=== PATIENT | male | born 1945 | race Hispanic/Latino ===

== ENCOUNTER 2018-02-16 20:40 | Emergency (ER) | payer MEDICARE ==
[2018-02-16 20:56] VITALS: BP 161/98; PULSE 95; RESP 20; TEMP 98.7; O2SAT 98
--- NOTE | 2018-02-16 21:56 | ED PDOC ---
Arrival/HPI - General Chief Complaint: Alcohol Ingestion Time Seen by Provider: 02/16/18 20:42 Historian: EMS - History of Present Illness Narrative History of Present Illness (Text): 02/16/18 20:55 72 year old male, with no significant past medical history, was brought to the Emergency department via EMS s/p alcohol intoxication prior to arrival. Patient admits to drinking alcohol tonight but denies any somatic complaints. Patient denies any fever, chills, nausea, vomiting, diarrhea, abdominal pain, chest pain , shortness of breath, or any other complaints. Patient informs smoking cigarettes daily but denies any substance abuse. Time/Duration: Prior to Arrival Symptom Onset: Gradual Symptom Course: Improving Activities at Onset: Other (Drinking Alcohol) Past Medical History - Provider Review Nursing Documentation Reviewed: Yes - Cardiac Hx Cardiac Disorders: No (pt denies) - Psychiatric Hx Psychophysiologic Disorder: No (patient denies) Hx Substance Use: No (denies) - Anesthesia Hx Anesthesia: No (pt denies) Family/Social History - Physician Review Nursing Documentation Reviewed: Yes Family/Social History: No Known Family HX Smoking Status: Heavy Smoker > 10 Cigarettes Daily Hx Alcohol Use: Yes Frequency of alcohol use: Daily Hx Substance Use: No (denies) Allergies/Home Meds Allergies/Adverse Reactions: Allergies No Known Allergies Allergy (Verified 02/16/18 20:51) Home Medications: Home Meds Medication Instructions Recorded Confirmed No Known Home Med 02/16/18 02/16/18 Review of Systems - Physician Review All systems were reviewed & negative as marked: Yes - Review of Systems Constitutional: Other (Intoxicated). absent: Fevers Eyes: Normal ENT: Normal Respiratory: Normal. absent: SOB Cardiovascular: Normal. absent: Chest Pain Gastrointestinal: Normal. absent: Abdominal Pain, Diarrhea, Nausea, Vomiting Genitourinary Male: Normal Musculoskeletal: Normal Skin: Normal Neurological: Normal Endocrine: Normal Hemo/Lymphatic: Normal Psychiatric: Normal Physical Exam Vital Signs Reviewed: Yes Vital Signs Temp Pulse Resp BP Pulse Ox 02/16/18 20:51 98.7 F 95 H 20 161/98 H 98 Temperature: Afebrile Blood Pressure: Hypertensive Pulse: Tachycardic Respiratory Rate: Normal Appearance: Positive for: Well-Appearing, Other (Intoxicated) Pain Distress: None Mental Status: Positive for: Alert and Oriented X 3 Finger Stick Blood Glucose: 112 - Systems Exam Head: Present: Atraumatic, Normocephalic Pupils: Present: PERRL Extroacular Muscles: Present: EOMI Conjunctiva: Present: Normal Respiratory/Chest: Present: Clear to Auscultation, Good Air Exchange. No: Respiratory Distress, Accessory Muscle Use Cardiovascular: Present: Regular Rate and Rhythm, Normal S1, S2. No: Murmurs Abdomen: No: Tenderness, Distention, Peritoneal Signs Upper Extremity: Present: Normal Inspection. No: Cyanosis, Edema Lower Extremity: Present: Normal Inspection. No: Edema Neurological: Present: GCS=15, CN II-XII Intact, Speech Normal Skin: Present: Warm, Dry, Normal Color. No: Rashes Psychiatric: Present: Alert, Oriented x 3, Intoxicated Medical Decision Making ED Course and Treatment: 02/16/18 21:00 Impression: 72 year old male presents to the Emergency department for alcohol intoxication. Differential Diagnosis included but are not limited to: alcohol intoxication Plan: -- Reassess and disposition pt awake and alert ambulating in ed at 2200 no signs of acute alcohol intoxication will dc Progress Notes: 02/16/18 22:28 - Scribe Statement The provider has reviewed the documentation as recorded by the Scribe Gita Mc. All medical record entries made by the Scribe were at my direction and personally dictated by me. I have reviewed the chart and agree that the record accurately reflects my personal performance of the history, physical exam, medical decision making, and the department course for this patient. I have also personally directed, reviewed, and agree with the discharge instructions and disposition. Disposition/Present on Arrival - Present on Arrival Any Indicators Present on Arrival: No History of DVT/PE: No History of Uncontrolled Diabetes: No Urinary Catheter: No History of Decub. Ulcer: No History Surgical Site Infection Following: None - Disposition Have Diagnosis and Disposition been Completed?: Yes Diagnosis: Alcohol abuse Disposition: HOME/ ROUTINE Disposition Time: 22:00 Patient Problems: Current Active Problems Problem Status Onset Alcohol abuse Acute Condition: GOOD Discharge Instructions (ExitCare): Alcohol Abuse and Alcoholism (DC) Referrals: Sung Clark MD [Primary Care Provider] - Follow up with primary Forms: [employer] (Iraqi)
== END 2018-02-16 22:12 | disposition home or self-care (01) ==
LOC: ED 20:40
DX: F10.129 Alcohol abuse with intoxication, unspecified (principal); F17.210 Nicotine dependence, cigarettes, uncomplicated

== ENCOUNTER 2018-03-28 19:14 | Emergency (ER) | payer MEDICARE ==
--- NOTE | 2018-03-28 20:37 | ED PDOC ---
Arrival/HPI - General Chief Complaint: Alcohol Ingestion Time Seen by Provider: 03/28/18 19:25 Historian: Patient, EMS - History of Present Illness Narrative History of Present Illness (Text): 03/28/18 20:36 Santo Austin is a 72 year old male who presents to the Emergency department for public intoxication today. Patient was found intoxicated, states he was drinking with his friend when he fell and hit his head. Patient denies any loss of consciousness, headache, dizziness, neck pain, back pain, or any other complaints. Symptom Onset: Gradual Symptom Course: Unchanged Activities at Onset: Light Context: Home Past Medical History - Provider Review Nursing Documentation Reviewed: Yes - Cardiac Hx Cardiac Disorders: No (pt denies) - Psychiatric Hx Psychophysiologic Disorder: No (patient denies) Hx Substance Use: No (denies) - Anesthesia Hx Anesthesia: No (pt denies) Family/Social History - Physician Review Nursing Documentation Reviewed: Yes Family/Social History: Unknown Family HX Smoking Status: Heavy Smoker > 10 Cigarettes Daily Hx Alcohol Use: Yes Hx Substance Use: No (denies) Allergies/Home Meds Allergies/Adverse Reactions: Allergies No Known Allergies Allergy (Verified 02/16/18 20:51) Home Medications: Home Meds Medication Instructions Recorded Confirmed Unobtainable 03/28/18 03/28/18 Review of Systems - Physician Review All systems were reviewed & negative as marked: Yes - Review of Systems Constitutional: Normal. absent: Fevers Eyes: Normal ENT: Normal Respiratory: Normal. absent: SOB, Cough Cardiovascular: Normal. absent: Chest Pain Gastrointestinal: Normal. absent: Abdominal Pain, Diarrhea, Nausea, Vomiting Genitourinary Male: Normal. absent: Dysuria, Frequency, Hematuria, Urinary Output Changes Musculoskeletal: Normal. absent: Back Pain, Neck Pain Skin: Laceration Neurological: Normal. absent: Headache, Dizziness Endocrine: Normal Hemo/Lymphatic: Normal Psychiatric: Other (+alcohol intoxication) Physical Exam Vital Signs Reviewed: Yes Vital Signs Temp Pulse Resp BP Pulse Ox 03/28/18 20:52 98.1 F 79 20 150/106 H 97 Temperature: Afebrile Blood Pressure: Normal Pulse: Regular Respiratory Rate: Normal Appearance: Positive for: Well-Appearing Pain Distress: None Mental Status: Positive for: other (Awake, alert, intoxicared) - Systems Exam Head: Present: Normocephalic, Laceration (2.5 cm laceration to left parietal scalp) Pupils: Present: PERRL Extroacular Muscles: Present: EOMI Conjunctiva: Present: Normal Mouth: Present: Moist Mucous Membranes Neck: Present: Normal Range of Motion. No: Meningeal Signs, MIDLINE TENDERNESS , Paraspinal Tenderness Respiratory/Chest: Present: Clear to Auscultation, Good Air Exchange. No: Respiratory Distress, Accessory Muscle Use Cardiovascular: Present: Regular Rate and Rhythm, Normal S1, S2. No: Murmurs Abdomen: No: Tenderness, Distention, Peritoneal Signs Back: Present: Normal Inspection. No: CVA Tenderness, Midline Tenderness, Paraspinal Tenderness Upper Extremity: Present: Normal Inspection. No: Cyanosis, Edema Lower Extremity: Present: Normal Inspection. No: Edema Neurological: Present: GCS=15, CN II-XII Intact, Speech Normal Skin: Present: Warm, Dry, Normal Color. No: Rashes Psychiatric: Present: Alert, Oriented x 3, Intoxicated Medical Decision Making ED Course and Treatment: 03/28/18 20:36 Impression: 72 year old male brought in for alcohol intoxication s/p fall. Differential Diagnosis included but are not limited to: laceration vs. alcohol intoxication Plan: -- CT Head w/o contrast -- Reassess and disposition Prior Visits: Notes and results from previous visits were reviewed. Progress Notes: 03/28/18 23:15 CT Head shows: Brain: Mild atrophy. No intracranial hemorrhage. No mass. Few scattered foci of decreased attenuation within periventricular/subcortical white matter. No edema. Ventricles: No hydrocephalus. Bones/joints: No acute fracture. Soft tissues: LEFT parietal soft tissue swelling. Vasculature: Minimal atherosclerotic disease of intracranial arteries. Sinuses: Scattered mild mucosal thickening. RIGHT maxillary retention cyst. Mastoid air cells: No mastoid effusion. Orbits: Unremarkable as visualized. IMPRESSION: 1. No intracranial hemorrhage. 2. Nonspecific white matter changes. 3. Incidental/non-acute findings are described above. 03/28/18 23:45 PROCEDURE: LACERATION REPAIR Performed by the emergency provider Location: Left parietal scalp Length: 2.5 cm Description: clean wound edges, no foreign bodies Distal CMS: Normal. No deficits. Neurovascularly intact. Preparation: The wound was cleaned with NS and [place]. The area was prepped and draped in the usual sterile fashion. Exploration: The wound was explored and no foreign bodies were found. Procedure: The wound was closed with 3 chastity. There was good approximation. Post-Procedure: Good closure and hemostasis. The patient tolerated the procedure well and there were no complications. CSM remains intact. Post procedure dressing applied. 03/29/18 05:51 Pt awake, alert, and ambulating with steady gait. In no acute distress, clinically sober. Pt stable for d/c. - RAD Interpretation Radiology Orders: 03/28/18 19:50 HEAD W/O CONTRAST [CT] Stat [employer] [facility] Manager: Radiologist - Scribe Statement The provider has reviewed the documentation as recorded by the Scribe Natalie Madrigal All medical record entries made by the Scribe were at my direction and personally dictated by me. I have reviewed the chart and agree that the record accurately reflects my personal performance of the history, physical exam, medical decision making, and the department course for this patient. I have also personally directed, reviewed, and agree with the discharge instructions and disposition. Disposition/Present on Arrival - Present on Arrival Any Indicators Present on Arrival: No History of DVT/PE: No History of Uncontrolled Diabetes: No Urinary Catheter: No History of Decub. Ulcer: No History Surgical Site Infection Following: None - Disposition Have Diagnosis and Disposition been Completed?: Yes Diagnosis: Alcohol intoxication, Scalp laceration Disposition: HOME/ ROUTINE Disposition Time: 05:54 Patient Plan: Discharge Condition: GOOD Discharge Instructions (ExitCare): Laceration Repair With Chastity (DC), Alcohol Abuse and Alcoholism (DC) Additional Instructions: Keep area clean and dry/follow up with your doctor in 5-7 days for staple removal Referrals: Sung Clark MD [Primary Care Provider] - Follow up with primary Alcoholics Anonymous [Outside] - Follow up with primary Forms: [employer] (Northern Irish)
[2018-03-28 20:53] VITALS: TEMP 98.1
--- NOTE | 2018-03-28 22:58 | CT ---
EXAM: CT Head Without Intravenous Contrast CLINICAL HISTORY: 72 years old, male; Injury or trauma; Fall; Initial encounter; Concussion / head injury TECHNIQUE: Axial computed tomography images of the head/brain without intravenous contrast. All CT scans at this facility use one or more dose reduction techniques, viz.: automated exposure control; ma/kV adjustment per patient size (including targeted exams where dose is matched to indication; i.e. head); or iterative reconstruction technique. Coronal and sagittal reformatted images were created and reviewed. COMPARISON: No relevant prior studies available. FINDINGS: Brain: Mild atrophy. No intracranial hemorrhage. No mass. Few scattered foci of decreased attenuation within periventricular/subcortical white matter. No edema. Ventricles: No hydrocephalus. Bones/joints: No acute fracture. Soft tissues: LEFT parietal soft tissue swelling. Vasculature: Minimal atherosclerotic disease of intracranial arteries. Sinuses: Scattered mild mucosal thickening. RIGHT maxillary retention cyst. Mastoid air cells: No mastoid effusion. Orbits: Unremarkable as visualized. IMPRESSION: 1. No intracranial hemorrhage. 2. Nonspecific white matter changes. 3. Incidental/non-acute findings are described above.
[2018-03-29] MEDS ORDERED: TDAP Vaccine 0.5 mL Syr IM ONE (05:53)
[2018-03-29 06:37] VITALS: BP 116/68; PULSE 78; RESP 16; O2SAT 99
== END 2018-03-29 06:35 | disposition home or self-care (01) ==
LOC: ED 19:14
DX: S01.01XA Laceration without foreign body of scalp, initial encounter (principal); X58.XXXA Exposure to other specified factors, initial encounter; F10.129 Alcohol abuse with intoxication, unspecified; F17.210 Nicotine dependence, cigarettes, uncomplicated; Z23 Encounter for immunization

== ENCOUNTER 2018-04-06 22:42 | Emergency (ER) | payer MEDICARE ==
[2018-04-06 22:47] VITALS: BMI 30.1
[2018-04-06 22:52] VITALS: RESP 18; TEMP 97.6
--- NOTE | 2018-04-06 22:52 | ED PDOC ---
Arrival/HPI - General Time Seen by Provider: 04/06/18 22:44 Historian: Patient, EMS, Police - History of Present Illness Narrative History of Present Illness (Text): you were treated in the ED today for admitted alcohol usage and brought by the police/EMS and otherwise without any head injury/neck pain/loss of consciousness /nausea/vomiting/headache/dizziness/difficulty breathing/chest pain/abdomen pain /numbness/tingling/loss of limb function/pain with urination/thoughts to harm self or others or hallucinations or any other drug use. 04/06/18 22:49 04/06/18 23:26 Time/Duration: 4-6 hours Symptom Onset: Gradual Symptom Course: Improving Quality: Other (no pain) Activities at Onset: Rest Context: Sitting Past Medical History - Provider Review Nursing Documentation Reviewed: Yes - Travel History Have you recently traveled outside [place] w/in the past 3 mons?: No - Cardiac Hx Cardiac Disorders: No (pt denies) - Psychiatric Hx Psychophysiologic Disorder: No (patient denies) Hx Substance Use: No (denies) - Anesthesia Hx Anesthesia: No (pt denies) Family/Social History - Physician Review Nursing Documentation Reviewed: Yes Family/Social History: No Known Family HX Smoking Status: Heavy Smoker > 10 Cigarettes Daily Hx Alcohol Use: Yes Hx Substance Use: No (denies) Allergies/Home Meds Allergies/Adverse Reactions: Allergies No Known Allergies Allergy (Verified 04/06/18 22:50) Home Medications: Home Meds Medication Instructions Recorded Confirmed Unobtainable 03/28/18 04/06/18 Review of Systems - Review of Systems Constitutional: Normal Eyes: Normal ENT: Normal Respiratory: Normal Cardiovascular: Normal Gastrointestinal: Normal Genitourinary Male: Normal Musculoskeletal: Normal Skin: Normal Neurological: Normal Endocrine: Normal Hemo/Lymphatic: Normal Psychiatric: Normal Physical Exam Vital Signs Reviewed: Yes Vital Signs Temp Pulse Resp BP Pulse Ox 04/07/18 00:34 60 18 129/85 98 04/06/18 22:51 97.6 F 71 18 142/89 96 Appearance: Positive for: Well-Appearing, Non-Toxic, Comfortable Pain Distress: None Mental Status: Positive for: Alert and Oriented X 3 - Systems Exam Head: Present: Atraumatic, Normocephalic Pupils: Present: PERRL Extroacular Muscles: Present: EOMI Conjunctiva: Present: Normal Ears: Present: Normal Mouth: Present: Moist Mucous Membranes Pharnyx: Present: Normal Nose (External): Present: Atraumatic Nose (Internal): Present: Normal Inspection Neck: Present: Normal Range of Motion, Other (no c-t-l spinal or paraspinal tenderness) Respiratory/Chest: Present: Clear to Auscultation, Good Air Exchange Cardiovascular: Present: Regular Rate and Rhythm Abdomen: No: Tenderness, Distention, Normal Bowel Sounds, Peritoneal Signs, Rebound, Guarding, McBurney's Point Tender, Rovsing's Sign Present, Hernias, Feeding Tubes, Ostomy Tubes, Mass/Organomegaly, Scars, Other Back: Present: Normal Inspection Upper Extremity: Present: Normal Inspection Lower Extremity: Present: Normal Inspection Neurological: Present: GCS=15, CN II-XII Intact, Speech Normal, Motor Func Grossly Intact Skin: Present: Warm, Normal Color Psychiatric: Present: Alert, Oriented x 3, Normal Insight, Normal Concentration Medical Decision Making ED Course and Treatment: you were treated in the ED today for admitted alcohol usage and brought by the police/EMS and otherwise without any head injury/neck pain/loss of consciousness /nausea/vomiting/headache/dizziness/difficulty breathing/chest pain/abdomen pain /numbness/tingling/loss of limb function/pain with urination/thoughts to harm self or others or hallucinations or any other drug use. You were otherwise breathing easily, pink moist lips, smiling and talking easily, good strength/ sensation, alert/oriented, walking easily, clear lungs, no abdomen tenderness, no fever temp 97.1, stable heart rate 71, stable breathing rate 18, excellent oxygen level 96% room air, elevated blood pressure 142/89 which we recommend repeat in 2-3 days primary care office to determine further treatment, observation done in the ED with improvement, counselled to stop drinking alcohol and thus discharged home with safe ride friend who will monitor you. 1. Recommend follow-up primary care 2-3 days to review symptoms, referral to detoxification clinic to stop drinking alcohol. 2. If any worsening pain, fever , chills, nausea, vomiting, difficulty breathing, numbness, loss of limb function, pain with urination or any medical condition then return to the ED. 04/06/18 23:26 04/07/18 00:36 Reassessment Condition: Re-examined, Improved Disposition/Present on Arrival - Present on Arrival Any Indicators Present on Arrival: No History of DVT/PE: No History of Uncontrolled Diabetes: No Urinary Catheter: No History Surgical Site Infection Following: None - Disposition Have Diagnosis and Disposition been Completed?: Yes Diagnosis: Alcohol use Disposition: HOME/ ROUTINE Disposition Time: 00:37 Patient Plan: Discharge Condition: IMPROVED Additional Instructions: you were treated in the ED today for admitted alcohol usage and brought by the police/EMS and otherwise without any head injury/neck pain/loss of consciousness /nausea/vomiting/headache/dizziness/difficulty breathing/chest pain/abdomen pain /numbness/tingling/loss of limb function/pain with urination/thoughts to harm self or others or hallucinations or any other drug use. You were otherwise breathing easily, pink moist lips, smiling and talking easily, good strength/ sensation, alert/oriented, walking easily, clear lungs, no abdomen tenderness, no fever temp 97.1, stable heart rate 71, stable breathing rate 18, excellent oxygen level 96% room air, elevated blood pressure 142/89 which we recommend repeat in 2-3 days primary care office to determine further treatment, observation done in the ED with improvement, counselled to stop drinking alcohol and thus discharged home with safe ride friend who will monitor you. 1. Recommend follow-up primary care 2-3 days to review symptoms, referral to detoxification clinic to stop drinking alcohol. 2. If any worsening pain, fever , chills, nausea, vomiting, difficulty breathing, numbness, loss of limb function, pain with urination or any medical condition then return to the ED.
[2018-04-07 00:35] VITALS: BP 129/85; PULSE 60
[2018-04-07 00:47] VITALS: O2SAT 99
== END 2018-04-07 00:40 | disposition home or self-care (01) ==
LOC: ED 22:42
DX: F10.10 Alcohol abuse, uncomplicated (principal)